=== PATIENT | female | born 1980 | race Caucasian/White ===

== ENCOUNTER → 2017-06-23 | Outpatient (CLI) | payer BC, SELFPAY | PROVIDERS: Family Provider Nurse Practitioner Family; Visit Provider Nurse Practitioner Family | DX: M79.601 Pain in right arm (principal); S40.021A Contusion of right upper arm, initial encounter | CPT/HCPCS: 73060 ==

== ENCOUNTER → 2017-08-30 10:08 | Outpatient (CLI) | payer OTHER, SELFPAY ==
[2017-08-30 10:13] LABS: Adenovirus,PCR Not Detected (NotDetected); Bordetella Pertussis Not Detected (NotDetected); Chlamydophila Pneumoniae, PCR Not Detected (NotDetected); Coronavirus 229E Not Detected (NotDetected); Coronavirus NL63 Not Detected (NotDetected); Coronavirus OC43 Not Detected (NotDetected); Coronovirus HKU1,PCR Not Detected (NotDetected); Human Metapneumovirus Not Detected (NotDetected); Influenza A, PCR Not Detected (NotDetected); Influenza AH1, 2009 Not Detected (NotDetected); Influenza AH1, PCR Not Detected (NotDetected); Influenza AH3,PCR Not Detected (NotDetected); Influenza B, PCR Not Detected (NotDetected); Mycoplasma Pneumoniae, PCR Not Detected (NotDected); Parainfluenza 1, PCR Not Detected (NotDetected); Parainfluenza 2, PCR Not Detected (NotDetected); Parainfluenza 3, PCR Not Detected (NotDetected); Parainfluenza 4, PCR Not Detected (NotDetected); Rhinovirus/Enterovirus Not Detected (NotDetected)
[2017-08-30 14:55] LABS: Respiratory Syncytial Virus Detected (NotDetected)
== END ==
PROVIDERS: PCP Nurse Practitioner Family; Visit Provider Nurse Practitioner Family
DX: R05 Cough (principal); J02.9 Acute pharyngitis, unspecified; R50.9 Fever, unspecified
CPT/HCPCS: 87486; 87581; 87633; 87798

== ENCOUNTER 2017-09-01 09:36 | Emergency (ER) | payer OTHER, SELFPAY ==
[2017-09-01 09:40] VITALS: BP 110/74; PULSE 77; RESP 20; TEMP 36.6; O2SAT 100; BMI 22.8
--- NOTE | 2017-09-01 10:20 | XR_ITS ---
XR chest 2V HISTORY: ITS.REASON: COUGH AND CHEST CONGESTION ORDERING PHYSICIAN: Isabelle Diamond PATIENT AGE: 37 years COMPARISON: None available FINDINGS: The cardiomediastinal silhouette and pulmonary vascularity are within normal limits. The lungs are clear without infiltrates, suspicious nodules, or pleural effusions. There is an azygos fissure is a normal variant No acute bony abnormalities. IMPRESSION: Negative chest, no acute finding
[2017-09-01 10:21] VITALS: BP 120/71; PULSE 75; RESP 20; TEMP 36.9; O2SAT 97; BMI 22.8
--- NOTE | 2017-09-01 10:55 | HMH.EDUTC ---
[facility] [place] Disposition Clinical Impression: RSV bronchitis Asthmatic bronchitis Qualifiers: Asthma severity: unspecified severity Asthma persistence: unspecified Asthma complication type: with acute exacerbation Qualified Code(s): J45.901 - Unspecified asthma with (acute) exacerbation Disposition: Home, Self-Care Condition on Discharge: Good Instructions: DI for Respiratory Syncytial Virus -- Adults, DI for Acute Bronchitis Additional Instructions: * No antibiotics are necessary for asthma, bronchitis or RSV * Monitor Temp. Follow up if fever develops as that would be unexpected. * humidifier/vaporizer/hot steamy shower * Rescue Inhaler or preferably neb if at home every 4-6 hours as needed like we discussed. You will likely need it more the next few days while you get started back on your Qvar. Qvar as directed. Is available for pickup at [facility]. Should help open airways and improve cough, wheezing, shortness of breath. * Start steroid tomorrow since you had injection in clinic. Helps with inflammation therefore, cough and wheezing. Follow directions on package. Rvwd side effects. Pt reports they have taken them before. Prescriptions: predniSONE [Prednisone 5mg Tab Dose-Pack] 5 mg PO UD DOSE PK #1 pack Referrals: Magy Courtney [Primary Care Provider] - (Follow up IMMEDIATELY for new or worsening symptoms OR no noticeable improvement over the next 48-72 hours. 911 for difficulty breathing) Forms: Work/School Release Time of Disposition: 11:45 Medical Decision Making Vital Signs: 09/01/17 09:40 09/01/17 10:21 Temperature 97.9 F 98.4 F Temperature Source Oral Oral Pulse Rate [Right Brachial] 77 75 Respiratory Rate 20 20 Blood Pressure [Right Arm] 110/74 120/71 Blood Pressure Mean [Right Arm] 86 87 Blood Pressure Source [Right Arm] Automatic Cuff Automatic Cuff Blood Pressure Position [Right Arm] Sitting Sitting 02 Sat by Pulse Oximetry 100 97 Oxygen Delivery Method Room Air Room Air Orders (Tests/Meds): ED MEDICATIONS Discontinued Medications Generic Name Dose Route Start Last Admin Trade Name Freq PRN Reason Stop Dose Admin Albuterol/Ipratropium 3 ml 09/01/17 10:55 09/01/17 11:10 Duoneb 3ml Neb IH 09/01/17 10:56 3 ml ONCE ONE Administration Methylprednisolone Sodium Succinate 125 mg 09/01/17 10:55 09/01/17 11:10 Solu-Medrol 125mg/2ml Vial IM 09/01/17 10:56 125 mg ONCE ONE Administration ORDERS Category Date Time Status CXR 2 view (NOT portable) [XR chest 2V] Stat Exams 09/01/17 10:20 Taken - Radiology Data #1 Image(s): Chest Image Reviewed: Yes I reviewed the patient's radiology image w/the ED provider Preliminary Findings: Normal/NAD 1055: Called for ER MD to review. Not available. [place], SKID MAN, will give him the message. 1130: Called for ER MD again. Rvwd w/ Dr. Mahmood. Negative CXR. - Alec Inquiry Pt receiving controlled substance: No - Reevaluation(s) Time: 11:08 Reevaluation #1: Spoke to Toñito at [facility]. Inhaled steroid is Qvar 80. Is available for refill and does have multiple refills available. 1135: pt feels SOA has improved with neb/steroid. I can breath easier . Wheezing resolved. Discussed POC. Ready for discharge. Requesting work excuse for tomorrow. [facility] [place] HPI - General Stated complaint: RSV since Wednesday, worst Time Seen by Provider: 09/01/17 10:40 Mode of Arrival: Family Vehicle Source of Information: Patient Limitations: No Limitations Description of Symptoms (Recalled from Triage Doc. by RN): c/o shortness of breath, coughing up sputum and pleuritic type chest pain HEENT Symptoms (Recalled from RN notes): Yes Resp Symptoms (Recalled from RN notes): Yes (productive cough) Skin Symptoms (Recalled from RN notes): No MS Symptoms (Recalled from RN notes): No Functional Status (Recalled from RN notes): n/a - History of Present Illness Provider Complaint: c/o worsening cough, chest pain w/ cough and SOA. Originally s
--- NOTE | 2017-09-01 11:00 | ED_ITS ---
[facility] [place] Clinical Impression: RSV bronchitis Asthmatic bronchitis Qualifiers: Asthma severity: unspecified severity Asthma persistence: unspecified Asthma complication type: with acute exacerbation Qualified Code(s): J45.901 - Unspecified asthma with (acute) exacerbation Disposition: Home, Self-Care Condition on Discharge: Good Instructions: DI for Respiratory Syncytial Virus -- Adults, DI for Acute Bronchitis Additional Instructions: * No antibiotics are necessary for asthma, bronchitis or RSV * Monitor Temp. Follow up if fever develops as that would be unexpected. * humidifier/vaporizer/hot steamy shower * Rescue Inhaler or preferably neb if at home every 4-6 hours as needed like we discussed. You will likely need it more the next few days while you get started back on your Qvar. Qvar as directed. Is available for pickup at [facility]. Should help open airways and improve cough, wheezing, shortness of breath. * Start steroid tomorrow since you had injection in clinic. Helps with inflammation therefore, cough and wheezing. Follow directions on package. Rvwd side effects. Pt reports they have taken them before. Prescriptions: predniSONE [Prednisone 5mg Tab Dose-Pack] 5 mg PO UD DOSE PK #1 pack Referrals: Magy Courtney [Primary Care Provider] - (Follow up IMMEDIATELY for new or worsening symptoms OR no noticeable improvement over the next 48-72 hours. 911 for difficulty breathing) Forms: Work/School Release Time of Disposition: 11:45 Medical Decision Making Vital Signs: 09/01/17 09:40 09/01/17 10:21 Temperature 97.9 F 98.4 F Temperature Source Oral Oral Pulse Rate [Right Brachial] 77 75 Respiratory Rate 20 20 Blood Pressure [Right Arm] 110/74 120/71 Blood Pressure Mean [Right Arm] 86 87 Blood Pressure Source [Right Arm] Automatic Cuff Automatic Cuff Blood Pressure Position [Right Arm] Sitting Sitting 02 Sat by Pulse Oximetry 100 97 Oxygen Delivery Method Room Air Room Air Orders (Tests/Meds): ED MEDICATIONS Discontinued Medications Generic Name Dose Route Start Last Admin Trade Name Freq PRN Reason Stop Dose Admin Albuterol/Ipratropium 3 ml 09/01/17 10:55 09/01/17 11:10 Duoneb 3ml Neb IH 09/01/17 10:56 3 ml ONCE ONE Administration Methylprednisolone Sodium Succinate 125 mg 09/01/17 10:55 09/01/17 11:10 Solu-Medrol 125mg/2ml Vial IM 09/01/17 10:56 125 mg ONCE ONE Administration ORDERS Category Date Time Status CXR 2 view (NOT portable) [XR chest 2V] Stat Exams 09/01/17 10:20 Taken - Radiology Data #1 Image(s): Chest Image Reviewed: Yes I reviewed the patient's radiology image w/the ED provider Preliminary Findings: Normal/NAD 1055: Called for ER MD to review. Not available. [place], BACTERIOLOGY TECHNICIAN, will give him the message. 1130: Called for ER MD again. Rvwd w/ Dr. Mahmood. Negative CXR. - Alec Inquiry Pt receiving controlled substance: No - Reevaluation(s) Time: 11:08 Reevaluation #1: Spoke to Toñito at [employer]. Inhaled steroid is Qvar 80. Is available for refill and does have multiple refills available. 1135: pt feels SOA has improved with neb/steroid. I can breath easier . Wheezing resolved. Discussed POC. Ready for discharge. Requesting work excuse for tomorrow. [facility] [place] - General Stated complaint: RSV since Wednesday, worst Time Seen by Provider: 0
[2017-09-01 11:58] VITALS: BP 124/78; PULSE 78; RESP 20; TEMP 37; O2SAT 98
== END 2017-09-01 11:59 | disposition home or self-care (01) ==
LOC: ER 09:48 → UTC 09:49
PROVIDERS: Emergency Provider Nurse Practitioner Family; Family Provider Nurse Practitioner Family; PCP Nurse Practitioner Family
DX: J21.0 Acute bronchiolitis due to respiratory syncytial virus (principal); J45.901 Unspecified asthma with (acute) exacerbation; F41.9 Anxiety disorder, unspecified; Z88.1 Allergy status to other antibiotic agents; Z88.6 Allergy status to analgesic agent
CPT/HCPCS: 71046; 96372; 99202

== ENCOUNTER → 2018-09-20 08:07 | Outpatient (CLI) | payer MEDICAID, SELFPAY ==
[2018-09-21 08:45] LABS: Homocyst(e)ine 7.2 umol/L (0.0-15.0)
== END ==
PROVIDERS: PCP Physician Assistant; Visit Provider Physician Assistant
DX: E72.12 Methylenetetrahydrofolate reductase deficiency (principal)
CPT/HCPCS: 36415; 83090

== ENCOUNTER → 2021-12-05 12:58 | Outpatient (CLI) | payer MEDICAID, SELFPAY ==
--- NOTE | 2021-12-05 12:59 | CA_ITS ---
APPROVED REPORT EXAM: Comprehensive 2D, Doppler, and color-flow Echocardiogram Bonding Molder: Rin Givens RT(R) Ht: 5 ft 1 in Wt: 152lbs BSA: 1.68 BP: 110/84 mmHg Indications: SOB, CP, edema 2D Dimensions LVOT 1.78 cm (M/F) 1.5-2.5 LVEF (Wilder's) 62.80 % F: 54 - 74 LV Volume 65.80 mL F: 46 - 106 LV Volume Index 39.16 mL/m2 F: 29 - 61 LA Volume 24.30 mL LA Volume Index 14.46 mL/m2 (M/F) 16-34 M-Mode Dimensions RVDd 2.34 cm (0.9-2.6) LA Diam 3.01 cm (1.9-4.0) LVDd 1.95 cm (3.5-5.7) Ao Diam 2.74 cm (2.0-3.7) LVDs 2.75 cm (3.5-5.7) IVSd 0.73 cm (0.6-1.1) PWd 2.41 cm (0.6-1.1) EF (Teich) 137.80% FS 41.00% EDV (Teich) 11.90 mL ESV (Teich) 28.30 mL LV Diastology E Decel Time 220.00 (160-240 msec) E/A Ratio 1.3 MED E' 11.20 (< 7 cm/sec) E'/MED E' Ratio 7.40 (>14) LAT E' 12.20 (<10 cm/sec) E/LAT E' Ratio 6.80 (>14) Mitral Valve MV E Max Danyel. 83.00 (40-130 cm/s) MV A Velocity 62.00 (40-130 cm/s) E/A Ratio 1.33 MV Decel. Time 220.00 (160-240 ms) MV PHT 64.00 ms Left Ventricle Left atrium is normal size, left ventricle is normal size, there is no concentric left ventricular hypertrophy, estimated ejection fraction 55% with no regional wall motion abnormality, diastolic parameters are within normal range. Right Ventricle Right atrium and right ventricle are normal size and contractility. Aortic Valve Aortic valve is grossly normal there is no aortic stenosis or aortic insufficiency. Mitral Valve Mitral valve grossly normal, trace mitral regurgitation. Tricuspid Valve Tricuspid grossly normal, there is trace tricuspid regurgitation, tricuspid regurgitation jet velocity is inadequate for calculation of the right ventricular systolic pressure. Pulmonic Valve Pulmonic valve is poorly visualized. Great Vessels Aortic root is normal size. Inferior vena cava is normal size with normal inspiratory collapse. Pericardium No significant pericardial effusion noted. Conclusion 1. Normal left ventricular size preserved left ventricular systolic function, estimated ejection fraction 55% with no regional wall motion abnormality, diastolic parameters are within normal range. 2. Trace mitral and tricuspid regurgitation. 3. No significant pericardial effusion noted. 4. Inferior vena cava is normal size with normal inspiratory collapse. Electronically signed by : Hilton Garcia MD 12/05/2021 13:57:12
--- NOTE | 2021-12-05 12:59 | CA_ITS ---
APPROVED REPORT Exam: Exercise Treadmill Technologist: Holli Hwang, Ht: 5 ft 1 in Wt: 152 lbs BSA: 1.68 m2 HR: 63 bpm BP: 145/47 mmHg Medical History Medications: Albuterol,,,,, Multivitamin,,,,, Allergies: AZITHROMYCIN, CODEINE Stress Test Details Test: [place], Exercise stress testing was performed using a modified [place] protocol. HR Resting HR: 77 bpm Max Heart Rate (APMHR): 178.944186 bpm Max HR Achieved: 178 bpm Target HR (85% APMHR): 151.592659 bpm % of APMHR: 100.00 Recovery HR: 101 bpm BP Resting BP: 123/77 mmHg Max BP: 145/47 mmHg Recovery BP: 123.0/71.0 mmHg ECG Clinical Exercise duration: 07:47 min Highest Stage Achieved: Exercise capacity: 10.1 METs Stress ECG Conclusion PT WAS FATIGUE, SOA, PALPS, PRESSURE, AND DIZZINESS. <1.[address] CHANGES Electronically signed by : Hilton Garcia MD 12/08/2021 13:30:54
== END ==
PROVIDERS: PCP Emergency Medicine; Visit Provider Physician Assistant
DX: R06.00 Dyspnea, unspecified (principal); R07.89 Other chest pain; R60.9 Edema, unspecified
CPT/HCPCS: 93017; 93306

== ENCOUNTER → 2021-12-16 12:25 | Outpatient (CLI) | payer MEDICAID, SELFPAY ==
[2021-12-16 13:21] LABS: Basophils # 0.1 K/mm3 (0-0.2); Basophils % 1.4 % (0.1-2.0); Eosinophils # 0.3 K/mm3 (0.0-0.4); Eosinophils % 3.4 % (0.1-12.0); Hematocrit 41.1 % (37.0-47.0); Hemoglobin 13.6 g/dL (12.2-16.2); Lymphocytes # 1.5 K/mm3 (0.7-4.5); Lymphocytes % 20.7 % (10-50); Mean Corpuscular Hemoglobin 30.9 pg (27.0-31.2); Mean Corpuscular Volume 93.7 fl (81-99); Mean Platelet Volume 10.2 fl (7.4-10.4); Monocytes # 0.3 K/mm3 (0.1-1.0); Monocytes % 4.3 % (1.7-9.3); Neutrophils # 5.2 K/mm3 (1.8-7.8); Neutrophils % 70.1 % (37.0-80.0); Platelet Count 208 K/mm3 (142-424); Red Blood Count 4.39 M/mm3 (4.20-5.40); Red Cell Distribution Width 13.3 % (11.5-17.5); White Blood Count 7.4 K/mm3 (4.8-10.8)
[2021-12-16 14:12] LABS: Chloride 105 mmol/L (98-107); Sodium 138 mmol/L (136-145)
[2021-12-16 14:14] LABS: Blood Urea Nitrogen 7 mg/dl (7-17); Estimated Glomerular Filt Rate 110 ml/min (>60); GFR (African American) 133 ML/MIN (>60)
[2021-12-16 14:15] LABS: Calcium 9.8 mg/dl (8.4-10.2); Carbon Dioxide 25 mmol/L (22.0-30.0); Glucose 95 mg/dl (74-100)
== END ==
PROVIDERS: PCP Emergency Medicine; Visit Provider Nurse Practitioner
DX: Z01.812 Encounter for preprocedural laboratory examination (principal); Z20.822 Contact with and (suspected) exposure to COVID-19; R06.00 Dyspnea, unspecified; R07.89 Other chest pain; I20.9 Angina pectoris, unspecified; R60.9 Edema, unspecified
CPT/HCPCS: 36415; 80048; 85025; C9803; U0003; U0005

== ENCOUNTER 2021-12-17 08:40 | Day surgery (SDC) | payer MEDICAID, SELFPAY ==
[2021-12-17] VITALS (12 sets, daily range): BP systolic 82–130; BP diastolic 49–81; PULSE 51–88; RESP 17–19; TEMP 36.7–36.8; O2SAT 95–100; BMI 29.0
--- NOTE | 2021-12-17 | IR_ITS ---
APPROVED REPORT Patient Location: Outpatient PROCEDURES Left heart catheterization Left ventriculogram Selective coronary angiogram INDICATION Abnormal stress test Informed consent was obtained prior to the procedure. COMPLICATIONS NONE Estimated Blood Loss: LESS THAN 10 ML TECHNIQUE One percent lidocaine used to anesthetize the right anterior aspect of the wrist. The right radial artery was accessed via the Seldinger technique. A 6 Monegasque sheath was placed in the right radial artery. 2.5 mg of verapamil, 800 mcg of nitroglycerin, 1mg Lidocaine and 5000 U Heparin were given through the arterial sheath. The papa catheter was also used to perform left heart catheterization, left ventriculogram and selective coronary angiogram. At the end of the procedure the sheath was removed good hemostasis was achieved using Traclet band, patient was transferred to the postop holding area in stable condition. 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 Patient does have mild diastolic dysfunction which may be contributing to her symptoms although her symptoms could also be noncardiac. Recommend empiric treatment for diastolic dysfunction to determine clinical response if no clinical response evaluation of noncardiac chest pain Electronically signed by : Curt Thompson MD 12/17/2021 11:16:34
== END 2021-12-17 14:21 | disposition home or self-care (01) ==
LOC: CATHLAB 08:43
PROVIDERS: PCP Emergency Medicine; Visit Provider Internal Medicine
DX: I25.118 Atherosclerotic heart disease of native coronary artery with other forms of angina pectoris (principal); U09.9 Post COVID-19 condition, unspecified; I10 Essential (primary) hypertension; Z82.49 Family history of ischemic heart disease and other diseases of the circulatory system; Z79.899 Other long term (current) drug therapy
CPT/HCPCS: 93458; 99152; C1725; C1769; J1644; Q9967

== ENCOUNTER → 2022-01-01 14:05 | Outpatient (CLI) | payer MEDICAID, SELFPAY ==
--- NOTE | 2022-01-01 14:17 | CA_ITS ---
FINAL REPORT CLINICAL HISTORY: R06.00 - Dyspnea, unspecified. Pt had a heart cath 12/17/21 knot developed 2 days again with pain. FINDINGS: UPPER EXTREMITY ARTERIAL DUPLEX Spectral and Doppler waveform evaluations of the right radial artery were performed. Spectral analysis was performed. The right radial artery is patent. There is no evidence of pseudoaneurysm. IMPRESSION: Patent right radial artery without pseudoaneurysm. Reviewed, Interpreted and Dictated by Usama Louis III, MD Transcribed by Doroteo Prado Authenticated and [facility]
== END ==
PROVIDERS: Visit Provider Nurse Practitioner
DX: R06.09 Other forms of dyspnea (principal); R07.89 Other chest pain; M25.431 Effusion, right wrist
CPT/HCPCS: 93931